=== PATIENT | male | born 1970 | race Caucasian/White ===

== ENCOUNTER 2023-05-23 14:10 | Emergency (ER) | payer BC ==
[~2023-05-23] VITALS: Ht 180.3 cm; Wt 145.1 kg
[2023-05-23 14:31] VITALS: BP_SYST 143; PULSE 74; RESP 15; TEMP 98.6; O2SAT 97
[2023-05-23 15:26] LABS: BASOPHILS # (AUTO) 0.1 K/uL (0.0-0.2); BASOPHILS % (AUTO) 1.1 % (0.0-2.0); EOSINOPHILS # (AUTO) 0.6 K/uL (0.0-0.4); EOSINOPHILS % (AUTO) 8.5 % (0.0-4.0); HEMATOCRIT 45.6 % (36-54); HEMOGLOBIN 15.6 g/dL (14.0-18.0); LYMPHOCYTES # (AUTO) 1.8 K/uL (1.0-5.5); LYMPHOCYTES % (AUTO) 25.4 % (20.5-51.5); MEAN CORPUSCULAR HEMOGLOBIN 31 pg (27-31); MEAN CORPUSCULAR HGB CONC 34 % (32-36); MEAN CORPUSCULAR VOLUME 91 fL (79.0-98.0); MONOCYTES # (AUTO) 0.7 K/uL (0.0-1.0); MONOCYTES % (AUTO) 9.3 % (1.7-9.3); NEUTROPHILS % (AUTO) 55.7 % (40.0-70.0); PLATELET COUNT (AUTO) 275 K/uL (130-430); RED BLOOD CELL COUNT(AUTO) 5.04 MIL/uL (4.2-6.2); RED CELL DISTRIBUTION WIDTH 13.1 % (9.0-15.0); WHITE BLOOD COUNT (AUTO) 7.2 K/uL (4.8-10.8)
[2023-05-23 15:40] LABS: ALBUMIN 3.2 g/dL (3.4-4.8); BILIRUBIN,DIRECT 0.1 mg/dL (0.0-0.3); CALCIUM 8.4 mg/dL (8.4-11.0); CREATININE 0.77 mg/dL (0.55-1.30); POTASSIUM 3.7 mmol/L (3.5-5.1); TOTAL BILIRUBIN 0.6 mg/dL (0.0-1.0); TOTAL PROTEIN, SERUM 6.9 g/dL (6.4-8.3)
[2023-05-23] MEDS: KETOROLAC TROMETHAMINE 30 MG VIAL IM ONE (15:44)
[2023-05-23] MEDS ORDERED: HYDR-3917 PO (15:53)
[2023-05-23] MEDS ORDERED: DICL20GE TP (15:53)
[2023-05-23 16:13] VITALS: BP_SYST 143; PULSE 74; RESP 15; TEMP 98.6; O2SAT 97
== END 2023-05-23 16:06 | disposition home or self-care (01) ==
LOC: SED 14:10
DX: G89.29 Other chronic pain (principal); M54.50 Low back pain, unspecified; R53.1 Weakness; I48.91 Unspecified atrial fibrillation
CPT/HCPCS: 99284; 80076; 80048; 85025; 36415; 93005; 96372; J1885